=== PATIENT | male | born 1945 | race Caucasian/White ===

== ENCOUNTER 2021-12-29 04:49 | Day surgery (SDC) | payer OTHER ==
[2021-12-28 16:03] VITALS: BMI 26.7
[2021-12-29 11:13] VITALS: TEMP 97.8
[2021-12-29 11:54] VITALS: BP 96/64
[2021-12-29 11:55] VITALS: PULSE 64
== END 2021-12-29 11:53 | disposition home or self-care (01) ==
LOC: JASU-ENDO 04:49
PROVIDERS: ATTEND Internal Medicine Gastroenterology
PROC: 0DBH8ZX Excision of Cecum, Via Natural or Artificial Opening Endoscopic, Diagnostic (ICD-10-PCS; principal; 2021-12-29 13:00)
DX: Z12.11 Encounter for screening for malignant neoplasm of colon (principal); Z86.010 Personal history of colon polyps; D12.0 Benign neoplasm of cecum; K57.30 Diverticulosis of large intestine without perforation or abscess without bleeding
CPT/HCPCS: 88305-TC